=== PATIENT | female | born 1990 | race Caucasian/White ===

== ENCOUNTER 2025-08-09 14:02 | Emergency (ER) | payer BC ==
[~2025-08-09] VITALS: Ht 162.6 cm; Wt 63.5 kg
[2025-08-09 14:07] VITALS: TEMP 98.2
[2025-08-09] MEDS ORDERED: ACETAMINOPHEN ES 500 MG TABLET ONE (14:59)
[2025-08-09] MEDS ORDERED: IBUPROFEN 600 MG TABLET ONE (14:59)
[2025-08-09] MEDS: IBUPROFEN 600 MG TABLET PO ONE (15:00)
[2025-08-09] MEDS: ACETAMINOPHEN ES 500 MG TABLET PO ONE (15:00)
[2025-08-09 15:15] LABS: PLATELET COUNT (AUTO) 231 K/uL (150-450); RED BLOOD CELL COUNT(AUTO) 5.09 MIL/uL (4.0-5.2); RED CELL DISTRIBUTION WIDTH 14.5 % (11.5-15.0); WHITE BLOOD COUNT (AUTO) 5.1 K/uL (4.3-11.0)
[2025-08-09 15:18] LABS: CALCIUM, SERUM 8.9 mg/dL (8.5-10.1); CREATININE 1.6 mg/dL (0.6-1.3); SODIUM SERUM 144.0 mmol/L (136-145); UREA NITROGEN, BLOOD 19.0 mg/dL (7-18)
[2025-08-09] MEDS ORDERED: ACET-637 PO (15:45)
[2025-08-09] MEDS ORDERED: IBUP-1490 PO (15:45)
[2025-08-09 16:27] VITALS: BP 110/85; O2SAT 100
== END 2025-08-09 16:24 | disposition home or self-care (01) ==
LOC: ER 14:31
DX: R07.9 Chest pain, unspecified (principal)
CPT/HCPCS: 36415; 71045-TC; 80048-TC; 82962-TC; 85025-TC